=== PATIENT | female | born 1990 | race Hispanic/Latino ===

== ENCOUNTER 2017-10-03 12:51 | Emergency (ER) | payer MEDICAID, OTHER ==
[2017-10-03 12:55] VITALS: BMI 22.9
[2017-10-03 13:02] VITALS: O2SAT 99
[2017-10-03] MEDS ORDERED: Sodium Chloride 0.9% 1,000 ML IV STA (13:59)
[2017-10-03 14:18] LABS: URINE BILIRUBIN SMALL (NEGATIVE); URINE BLOOD LARGE (NEGATIVE); URINE GLUCOSE (UA) NEGATIVE (NEGATIVE); URINE LEUKOCYTE ESTERASE TRACE Leu/uL (NEGATIVE); URINE PROTEIN 30 mg/dL (<30 mg/dL); URINE UROBILINOGEN 0.2 E.U./dL (<1 E.U./dL)
[2017-10-03 14:45] LABS: URINE APPEARANCE CLEAR (CLEAR); URINE COLOR YELLOW (YELLOW)
--- NOTE | 2017-10-03 14:51 | ED PDOC ---
Arrival/HPI <Torey Smith - Last Filed: 10/03/17 15:24> - General Historian: Patient - History of Present Illness Time/Duration: 24 hours, < week Symptom Onset: Sudden Symptom Course: Unchanged Quality: Other (sharp) Severity Level: 4, 8 <Gerson Reevesglenyshuy - Last Filed: 10/03/17 16:24> - General Chief Complaint: Abdominal Pain - History of Present Illness Narrative History of Present Illness (Text): 10/03/17 14:41 27 yo F with no significant PMH presents complaining of 2 days of low back pain , and one day of lower abdominal pain and watery diarrhea. Patient reports that two days ago, she went to her doctor complaining of low back pain, and was told to take tylenol. She has been taking children's tylenol, "four cups every 4-6 hours" referring to the cup that comes with the bottle of medicine. Yesterday, she started having lower abdominal pain and diarrhea. She describes the pain as sharp, ranging from 4-8/10 in severity, nonradiating. She did not try anything for the pain. Diarrhea is watery, and she has had about 50 bowel movements since it began, including 15 bowel movements today. She denies blood or mucus in the stool, discoloration, or malodor. She denies fever, chills, constipation. She denies sick contacts, recent travel, recent antibiotic use, recent bug-bites. Patient also reports that she has had loose bowel movements daily for the past 9 years, ever since she had her gallbladder removed (Ron Reeves) Past Medical History - Provider Review Nursing Documentation Reviewed: Yes - Travel History Have you recently traveled outside [place] w/in the past 3 mons?: No - Past History Past History: No Previous - Infectious Disease Hx of Infectious Diseases: None - Tetanus Immunization Tetanus Immunization: Up to Date - Reproductive Currently : No - Psychiatric Hx Depression: No Hx Emotional Abuse: No Hx Physical Abuse: No Hx Substance Use: No - Surgical History Hx Cholecystectomy: Yes (2009) - Anesthesia Hx Anesthesia Reactions: No Hx Malignant Hyperthermia: No - Suicidal Assessment Feels Threatened In Home Enviroment: No <Ron Reeves - Last Filed: 10/03/17 16:24> Family/Social History - Physician Review Nursing Documentation Reviewed: Yes Family/Social History: Diabetes Smoking Status: Never Smoked Hx Alcohol Use: No Hx Substance Use: No <Amine,Azraram - Last Filed: 10/03/17 16:24> Allergies/Home Meds <Ranasinghe,Torey - Last Filed: 10/03/17 15:24> <Amine,Gersonkarram - Last Filed: 10/03/17 16:24> Allergies/Adverse Reactions: Allergies No Known Allergies Allergy (Verified 12/30/13 00:57) Review of Systems - Review of Systems Constitutional: Normal Eyes: Normal ENT: Normal Respiratory: Normal Cardiovascular: Normal Gastrointestinal: Abdominal Pain, Diarrhea, Nausea, Anorexia. absent: Vomiting , Hematochezia, Hematemesis Genitourinary Female: Normal. absent: Dysuria, Frequency, Hematuria Musculoskeletal: Back Pain Skin: Normal Neurological: Normal Endocrine: Normal Hemo/Lymphatic: Normal Psychiatric: Normal <Lala,Ron - Last Filed: 10/03/17 16:24> Physical Exam Vital Signs Reviewed: Yes Temperature: Afebrile Blood Pressure: Other (Patient borderline hypotensive, but normal compared to her baseline) Pulse: Tachycardic Respiratory Rate: Normal Appearance: Positive for: Well-Appearing, Non-Toxic, Comfortable Pain Distress: Mild Mental Status: Positive for: Alert and Oriented X 3 - Systems Exam Head: Present: Atraumatic, Normocephalic Pupils: Present: PERRL Extroacular Muscles: Present: EOMI Conjunctiva: Present: Normal Mouth: Present: Dry Neck: Present: Normal Range of Motion Respiratory/Chest: Present: Clear to Auscultation, Good Air Exchange. No: Respiratory Distress Cardiovascular: Present: Regular Rate and Rhythm, Normal S1, S2 Abdomen: Present: Tenderness (b/l LQ, and suprapubic). No: Distention, Normal Bowel Sounds (hyperactive), Peritoneal Signs, Rebound, Guarding Upper Extremity: Present: Normal Inspection, NORMAL PULSES, Capillary Refill < 2s. No: Cyanosis, Edema Lower Extremity: Present: Normal Inspection, NORMAL PULSES, Capillary Refill < 2 s. No: Edema, CALF TENDERNESS Neurological: Present: GCS=15, CN II-XII Intact, Speech Normal Skin: Present: Warm, Dry, Normal Color. No: Rashes Psychiatric: Present: Alert, Oriented x 3, Normal Insight, Normal Concentration <Amine,Ron - Last Filed: 10/03/17 16:24> Vital Signs Temp Pulse Resp BP Pulse Ox 10/03/17 15:57 19 99 10/03/17 13:00 98.0 F 77 19 129/91 H 99 10/03/17 12:52 97.4 F L 100 H 16 95/66 L 99 Medical Decision Making <Torey Smith - Last Filed: 10/03/17 15:24> Reassessment Condition: Re-examined <Ron Reeves - Last Filed: 10/03/17 16:24> ED Course and Treatment: 10/03/17 15:24 Patient Seen With Resident: In agreement with resident note which contains more details about the patient. Patient was seen and evaluated with resident. Came up with plan and treatment together.. (Torey Smith) 10/03/17 15:07 Impression: Back pain, abdominal pain, and diarrhea Differential diagnosis includes but is not limited to: Gastroenteritis, infectious diarrhea, , UTI, acetaminophen overdose Plan - Labs: CBC, CMP, UA, test, acetaminophen - 1L NS IVF bolus - Reassess and dispo Progress Note 10/03/17 15:17 - Labs unremarkable; acetaminophen level is low; test negative; UA shows hematuria, but patient just started her period; afebrile, no leukocytosis - Tachycardia improved - Patient lying in bed comfortably; symptoms likely 2/2 viral gastroenteritis - Instructed patient to continue oral hydration with glucose containing liquids and advance diet slowly; return to the ER for any new or worsening concerns - Instructed patient about dangers of acetaminophen overdose, and to always check the label and adhere to instructions (Ron Reeves) - Lab Interpretations Lab Results: 10/03/17 14:30 10/03/17 14:30 Lab Results 10/03/17 14:30: Acetaminophen < 10.0 L 10/03/17 14:30: Sodium 139, Potassium 3.7, Chloride 103, Carbon Dioxide 22, Anion Gap 18, BUN 11, Creatinine 0.7, Est GFR ( Amer) > 60, Est GFR (Non- Af Amer) > 60, Random Glucose 86, Calcium 9.2, Total Bilirubin 0.9, AST 25, ALT 33, Alkaline Phosphatase 66, Total Protein 7.7, Albumin 4.7, Globulin 3.0, Albumin/Globulin Ratio 1.5, Lipase 89 10/03/17 14:30: WBC 4.3 L D, RBC 4.75, Hgb 15.0, Hct 41.8, MCV 88.0, MCH 31.6, MCHC 35.9, RDW 12.9, Plt Count 212, MPV 10.4, Gran % 73.3 H, Lymph % (Auto) 15.0 L, [place] % (Auto) 11.0 H, Eos % (Auto) 0.5 L, Baso % (Auto) 0.2, Gran # 3.12 , Lymph # (Auto) 0.6 L, [place] # (Auto) 0.5, Eos # (Auto) 0.0, Baso # (Auto) 0.01 10/03/17 14:12: Urine Color Yellow, Urine Appearance Clear, Urine pH 6.0, Ur Specific [place] 1.025, Urine Protein 30 H, Urine Glucose (UA) Negative, Urine Ketones Trace H, Urine Blood Large H, Urine Nitrate Negative, Urine Bilirubin Small H, Urine Urobilinogen 0.2, Ur Leukocyte Esterase Trace H, Urine RBC 1 - 3 , Urine WBC 2 - 5, Ur Epithelial Cells 4 - 5, Urine Bacteria Trace - Medication Orders Current Medication Orders: Discontinued Medications Sodium Chloride (Sodium Chloride 0.9%) 1,000 mls @ 999 mls/hr IV .Q1H1M STA Stop: 10/03/17 14:59 Last Admin: 10/03/17 14:32 Dose: 999 mls/hr eMAR Start Stop Document 10/03/17 14:32 [email or web address] (Rec: 10/03/17 14:32 [email or web address] [facility] [id number]- [employer]) Intravenous Solution Start Date 10/03/17 Start Time 14:32 End Date 10/03/17 - Scribe Statement The provider has reviewed the documentation as recorded by the Scribe <Torey Smith - Last Filed: 10/03/17 15:24> <Ron Reeves - Last Filed: 10/03/17 16:24> - Scribe Statement Evonne Henry All medical record entries made by the Scribe were at my direction and personally dictated by me. I have reviewed the chart and agree that the record accurately reflects my personal performance of the history, physical exam, medical decision making, and the department course for this patient. I have also personally directed, reviewed, and agree with the discharge instructions and disposition. (Torey Smith) Disposition/Present on Arrival <Torey Smith - Last Filed: 10/03/17 15:24> - Present on Arrival Any Indicators Present on Arrival: No History of DVT/PE: No History of Uncontrolled Diabetes: No Urinary Catheter: No History of Decub. Ulcer: No History Surgical Site Infection Following: None - Disposition Have Diagnosis and Disposition been Completed?: Yes Disposition Time: 15:20 Patient Plan: Discharge <Ron Reeves - Last Filed: 10/03/17 16:24> - Disposition Diagnosis: Diarrhea, Tachycardia, Gastroenteritis Disposition: HOME/ ROUTINE Condition: FAIR Discharge Instructions (ExitCare): Diarrhea and Traveler's Diarrhea, Adult (DC) Additional Instructions: -- Drink plenty of fluids, including things like Gatorade or Pedialyte -- Advance your diet slowly as the symptoms improve -- Return to the ER for any new or worsening concerns, especially if you start spiking fever or if diarrhea becomes bloody or mucoid Referrals: Pam Lamb MD [Primary Care Provider] - Follow up with primary Forms: [facility] (German), WORK NOTE
[2017-10-03 14:52] LABS: ALB/GLOB RATIO 1.5 (1.1-1.8); ALBUMIN 4.7 g/dL (3.0-4.8); ALT/SGPT 33 U/L (7-56); AST/SGOT 25 U/L (14-36); BLOOD UREA NITROGEN 11 mg/dL (7-21); CALCIUM 9.2 mg/dL (8.4-10.5); GFR AFRICAN-AMERICAN > 60; GFR NON-AFRICAN AMERICAN > 60; LIPASE 89 U/L (23-300)
[2017-10-03 14:57] LABS: BASO # 0.01 K/mm3 (0.0-2.0); BASO % 0.2 % (0.0-3.0); EOS % 0.5 % (1.5-5.0); GRAN # 3.12 (1.4-6.5); GRAN % 73.3 % (50.0-68.0); LYMPH # 0.6 (1.2-3.4); MEAN CORPUSCULAR HEMOGLOBIN 31.6 pg (25.0-35.0); MEAN CORPUSCULAR HGB CONC 35.9 g/dl (31.0-37.0); MEAN PLATELET VOLUME 10.4 fl (7.0-11.0); MONO # 0.5 (0.1-0.6); RBC 4.75 10^6/uL (3.5-6.1); RED CELL DISTRIBUTION WIDTH 12.9 % (11.5-14.5); WHITE BLOOD COUNT 4.3 10^3/ul (4.5-11.0)
[2017-10-03 15:04] LABS: URINE BACTERIA TRACE (NEG)
[2017-10-03 15:57] VITALS: BP 129/91; PULSE 77; RESP 19; TEMP 98
== END 2017-10-03 15:58 | disposition home or self-care (01) ==
LOC: ED 12:51
DX: R00.0 Tachycardia, unspecified (principal); K52.9 Noninfective gastroenteritis and colitis, unspecified; Z90.49 Acquired absence of other specified parts of digestive tract
CPT/HCPCS: 80053; 80329; 81001; 83690; 85025; 87086; 99283; J7040

== ENCOUNTER 2018-07-06 22:18 | Emergency (ER) | payer MEDICAID ==
[2018-07-06 22:36] VITALS: BMI 24.2
[2018-07-06 22:38] VITALS: RESP 18
[2018-07-06] MEDS ORDERED: Sodium Chloride 0.9% 1,000 ML IV STA (22:55)
--- NOTE | 2018-07-06 23:15 | ED PDOC ---
Arrival/HPI - General Chief Complaint: Abdominal Pain Time Seen by Provider: 07/06/18 22:43 Historian: Patient - History of Present Illness Narrative History of Present Illness (Text): 07/06/18 22:55 28 year old female, with past medical history of cholecystectomy, presents to the ED for evaluation of generalized myalgias, nausea and vomiting x1, since few hours prior to arrival. Patient informs associated abdominal pain but denies any diarrhea or changes in bowel movement. Patient denies any fever at home but reports having a mild elevated temperature at triage. Patient denies any chest pain, shortness of breath, urinary symptoms, neck pain, back pain, headache, dizziness or any other complaints. Patient denies any recent travel. PMD Adonis Time/Duration: Prior to Arrival Symptom Onset: Gradual Symptom Course: Unchanged Activities at Onset: Light Context: Home Past Medical History - Provider Review Nursing Documentation Reviewed: Yes - Past History Past History: No Previous - Infectious Disease Hx of Infectious Diseases: None - Tetanus Immunization Tetanus Immunization: Up to Date - Psychiatric Hx Depression: No Hx Emotional Abuse: No Hx Physical Abuse: No Hx Substance Use: No - Surgical History Hx Cholecystectomy: Yes (2009) - Anesthesia Hx Anesthesia Reactions: No Hx Malignant Hyperthermia: No - Suicidal Assessment Feels Threatened In Home Enviroment: No Family/Social History - Physician Review Nursing Documentation Reviewed: Yes Family/Social History: No Known Family HX Smoking Status: Never Smoked Hx Alcohol Use: No Hx Substance Use: No Allergies/Home Meds Allergies/Adverse Reactions: Allergies No Known Allergies Allergy (Verified 07/06/18 22:42) Review of Systems - Physician Review All systems were reviewed & negative as marked: Yes - Review of Systems Constitutional: absent: Fevers Respiratory: absent: SOB, Cough Cardiovascular: absent: Chest Pain Gastrointestinal: Abdominal Pain, Nausea, Vomiting Genitourinary Female: absent: Dysuria, Hematuria, Urine Output Changes Musculoskeletal: Myalgias. absent: Back Pain, Neck Pain Skin: absent: Rash Neurological: absent: Headache, Dizziness Physical Exam Vital Signs Reviewed: Yes Vital Signs Temp Pulse Resp BP Pulse Ox 07/06/18 22:37 99.9 F H 85 18 99/66 L 98 Temperature: Afebrile Blood Pressure: Normal Pulse: Regular Respiratory Rate: Normal Appearance: Positive for: Well-Appearing, Non-Toxic, Comfortable Pain Distress: None Mental Status: Positive for: Alert and Oriented X 3 - Systems Exam Head: Present: Atraumatic, Normocephalic Pupils: Present: PERRL Extroacular Muscles: Present: EOMI Conjunctiva: Present: Normal Ears: Present: Normal, NORMAL TM. No: Erythema Mouth: Present: Moist Mucous Membranes Pharnyx: Present: Normal. No: ERYTHEMA, EXUDATE Neck: Present: Normal Range of Motion. No: Lymphadenopathy Respiratory/Chest: Present: Clear to Auscultation, Good Air Exchange. No: Respiratory Distress, Accessory Muscle Use Cardiovascular: Present: Regular Rate and Rhythm, Normal S1, S2. No: Murmurs Abdomen: Present: Tenderness (mild epigastric and LUQ tenderness). No: Distention, Peritoneal Signs, Rebound, Guarding Back: Present: Normal Inspection. No: CVA Tenderness, Midline Tenderness Upper Extremity: Present: Normal Inspection. No: Cyanosis, Edema Lower Extremity: Present: Normal Inspection. No: Edema Neurological: Present: GCS=15, CN II-XII Intact, Speech Normal, Motor Func Grossly Intact, Normal Sensory Function, Gait Normal Skin: Present: Warm, Dry, Normal Color. No: Rashes Psychiatric: Present: Alert, Oriented x 3, Normal Insight, Normal Concentration Medical Decision Making ED Course and Treatment: 07/06/18 22:55 Impression: 28 year old female presents to the ED for evaluation of body aches, nausea and vomiting. Plan: -- Labs -- Pepcid -- IV Fluids -- Zofran -- Toradol -- Influenza A B -- Urinalysis -- Reassess and disposition Prior Visits: Notes and results from previous visits were reviewed. Progress Notes: Labs reviewed : uhcg (-), flu (-), cbc & cmp wml, UA +ketones, no evidence of UTI. On reevaluation, patient reports improvement of symptoms, denies any abdominal pain, or nausea, she is able to tolerate po fluids. On exam, patient remains awake alert and oriented 3 in no acute distress. Abdomen soft and nontender, repeat neuro exam shows no focal findings. Advised to follow up with primary care physician in 1-2 days without fail. Advised to take medication as prescribed. Return to the emergency room at any time for any new or worsening symptoms. Patient states she fully agrees with and understands discharge instructions. States that she agrees with the plan and disposition. Verbalized and repeated discharge instructions and plan. I have given the patient opportunity to ask any additional questions. - Medication Orders Current Medication Orders: Sodium Chloride (Sodium Chloride 0.9%) 1,000 mls @ 1,000 mls/hr IV .Q1H STA Stop: 07/06/18 23:54 Discontinued Medications Famotidine (Pepcid) 20 mg IVP STAT STA Stop: 07/06/18 22:56 Ondansetron HCl (Zofran Inj) 4 mg IVP STAT STA Stop: 07/06/18 22:56 - PA / PURIFICATION DIRECTOR / Resident Statement MD/DO has reviewed & agrees with the documentation as recorded. - Scribe Statement The provider has reviewed the documentation as recorded by the Scribe Farrah Killian. All medical record entries made by the Kiaraibe were at my direction and personally dictated by me. I have reviewed the chart and agree that the record accurately reflects my personal performance of the history, physical exam, medical decision making, and the department course for this patient. I have also personally directed, reviewed, and agree with the discharge instructions and disposition. Disposition/Present on Arrival - Present on Arrival Any Indicators Present on Arrival: No History of DVT/PE: No History of Uncontrolled Diabetes: No Urinary Catheter: No History of Decub. Ulcer: No History Surgical Site Infection Following: None - Disposition Have Diagnosis and Disposition been Completed?: Yes Diagnosis: Abdominal pain Disposition: HOME/ ROUTINE Disposition Time: 23:55 Patient Plan: Discharge Patient Problems: Current Active Problems Problem Status Onset Abdominal pain Acute Condition: STABLE Discharge Instructions (ExitCare): Acute Abdomen (Belly Pain), Adult (DC), Viral Gastroenteritis, Adult (DC), Gastritis Additional Instructions: Thank you for letting us take care of you today. You were treated for abdominal pain, possible gastritis vs gastroenteritis. The emergency medical care you received today was directed at your acute symptoms. If you were prescribed any medication, please fill it and take as directed. It may take several days for your symptoms to resolve. Return to the Emergency Department if your symptoms worsen, do not improve, or if you have any other problems. Please contact your doctor in 2 days for re-evaluation and follow up. Bring any paperwork you were given at discharge with you along with any medications you are taking to your follow up visit. Our treatment cannot replace ongoing medical care by a primary care provider (PCP) outside of the emergency department. Thank you for allowing the [facility] team to be part of your care today. Prescriptions: Famotidine [Pepcid] 40 mg PO DAILY #20 tablet Ibuprofen [Motrin Tab] 600 mg PO QID PRN #20 tab PRN Reason: Pain, Moderate (4-7) Ondansetron ODT [Zofran ODT] 4 mg PO DAILY PRN #20 odt PRN Reason: Nausea/Vomiting Referrals: Pam Lamb MD [Primary Care Provider] - Follow up with primary Forms: [employer] [facility] (Mongolian), WORK NOTE
[2018-07-06 23:19] LABS: URINE BILIRUBIN SMALL (NEGATIVE); URINE BLOOD TRACE-INTACT (NEGATIVE); URINE GLUCOSE (UA) NEGATIVE (NEGATIVE); URINE LEUKOCYTE ESTERASE NEGATIVE Leu/uL (NEGATIVE); URINE PROTEIN TRACE mg/dL (<30 mg/dL); URINE UROBILINOGEN 0.2 E.U./dL (<1 E.U./dL)
[2018-07-06 23:20] LABS: GRAN # 7.05 (1.4-6.5); GRAN % 87.9 % (50.0-68.0); HEMOGLOBIN 14.5 g/dL (12.0-16.0); LYMPH # 0.6 (1.2-3.4); LYMPH % 7.5 % (22.0-35.0); MEAN CELL VOLUME 89.5 fl (80.0-105.0); MEAN CORPUSCULAR HEMOGLOBIN 31.1 pg (25.0-35.0); MEAN CORPUSCULAR HGB CONC 34.8 g/dl (31.0-37.0); MEAN PLATELET VOLUME 9.7 fl (7.0-11.0); MONO # 0.4 (0.1-0.6); MONO % 4.6 % (1.0-6.0); RBC 4.66 10^6/uL (3.5-6.1); RED CELL DISTRIBUTION WIDTH 12.7 % (11.5-14.5)
[2018-07-06 23:25] LABS: URINE APPEARANCE SL CLOUDY (CLEAR); URINE COLOR YELLOW (YELLOW)
[2018-07-06 23:26] LABS: ALB/GLOB RATIO 1.5 (1.1-1.8); BLOOD UREA NITROGEN 12 mg/dL (7-21); CALCIUM 9.3 mg/dL (8.4-10.5); GFR NON-AFRICAN AMERICAN > 60; INR 1.14; LIPASE 76 U/L (23-300); PARTIAL THROMBOPLASTIN TIME 36.5 Seconds (26.9-38.3); PROTHROMBIN TIME 12.6 SECONDS (9.4-12.5)
[2018-07-06 23:28] LABS: ALT/SGPT 30 U/L (7-56); AST/SGOT 26 U/L (14-36)
[2018-07-06 23:37] LABS: URINE BACTERIA FEW /hpf; URINE WBC 0 - 2 /hpf (0-6)
[2018-07-07 06:14] VITALS: BP 101/85; PULSE 86; TEMP 98.8; O2SAT 100
== END 2018-07-07 01:00 | disposition home or self-care (01) ==
LOC: ED 22:18
DX: R10.9 Unspecified abdominal pain (principal); Z90.49 Acquired absence of other specified parts of digestive tract
CPT/HCPCS: 80053; 81001; 81025; 83690; 83735; 85025; 85610; 85730; 87086; 87804; 96374; 96375; 99283; J1885; J2405; J7030